=== PATIENT | female | born 1970 | race Two or more races ===

== ENCOUNTER 2019-02-09 18:52 | Emergency (ER) | payer OTHER, MEDICAID ==
[~2019-02-09] VITALS: Ht 154.9 cm; Wt 67.1 kg
[2019-02-09 19:30] VITALS: BP 130/71
--- NOTE | 2019-02-09 19:30 | NUR ---
PT C/C ABD PAIN RADIATING TO LOW BACK X 3 DAYS. -N/V/D. PT IN BED 6 AWAITING EVAL. AOX4. NAD NOTED. RESP EVEN AND UNLABORED. FAMILY AT BEDSIDE. WILL CONTINUE TO MONITOR.
--- NOTE | 2019-02-09 19:31 | NUR ---
URINE COLLECTED & SENT TO LAB.
[2019-02-09 19:53] LABS: APPEARANCE,URINE Clear (CLEAR); BILIRUBIN,URINE Negative (NEGATIVE); BLOOD, URINE Trace-intact Ery/uL (NEGATIVE); COLOR,URINE Yellow (YELLOW); KETONES,URINE Negative (NEGATIVE); LEUKOCYTE ESTERASE ,URINE Negative (NEGATIVE); NITRITE, URINE Negative (NEGATIVE); PH,URINE 6.5 (5.0-8.0); PROTEIN,URINE Negative (NEGATIVE); UGLUCOSE Negative (NEGATIVE); UROBILINOGEN,URINE 0.2 EU/dL (0.2)
[2019-02-09 19:56] LABS: BASOPHILS # (AUTO) 0.1 /CMM (0.0-0.2); BASOPHILS % (AUTO) 0.8 % (0.0-2.0); EOSINOPHILS % (AUTO) 1.1 % (0.0-6.0); HEMATOCRIT 39 % (33-45); LYMPHOCYTES # (AUTO) 2.1 /CMM (0.8-4.8); LYMPHOCYTES % (AUTO) 32.2 % (20.0-44.0); MEAN CORPUSCULAR HGB CONC 34 g/dl (31.0-36.0); MEAN CORPUSCULAR VOLUME 85 fL (82-100); MONOCYTES # (AUTO) 0.7 /CMM (0.1-1.30); MONOCYTES % (AUTO) 11.1 % (2.0-12.0); NEUTROPHILS # (AUTO) 3.6 /CMM (1.8-8.9); NEUTROPHILS % (AUTO) 54.8 % (43.0-81.0); PLATELET COUNT (AUTO) 285 /CMM (150-450); RED BLOOD CELL COUNT(AUTO) 4.56 MIL/uL (4.0-5.2); WHITE BLOOD COUNT (AUTO) 6.7 K/uL (4.3-11.0)
--- NOTE | 2019-02-09 20:00 | NUR ---
PHLEB AT BEDSIDE FOR LAB DRAW
[2019-02-09 20:03] LABS: CALCIUM, SERUM 8.8 mg/dL (8.5-10.1); CREATININE 0.9 mg/dL (0.6-1.3)
[2019-02-09 20:09] LABS: ALBUMIN 3.3 g/dL (3.4-5.0); BILIRUBIN,TOTAL 0.1 mg/dL (0.2-1.0); TOTAL PROTEIN, SERUM 7.3 g/dL (6.4-8.2)
[2019-02-09 20:17] LABS: BACTERIA,URINE None seen /HPF (None Seen); SQUAMOUS EPITHELIAL CELL,UR Few /HPF (None Seen); WBC,URINE 0-2 /HPF (0-3)
[2019-02-09] MEDS ORDERED: ACETAMINOPHEN ES 500 MG TABLET ONE (20:18)
[2019-02-09] MEDS ORDERED: ACETAMINOPHEN ES 500 MG TABLET PO ONE (20:30)
--- NOTE | 2019-02-09 21:30 | NUR ---
PT RETURNED FROM CT. PT TOLERATED WELL.
--- NOTE | 2019-02-09 22:24 | NUR ---
Patient discharged to home in stable condition. Written and verbal after care instructions given. Patient verbalizes understanding of instruction.
== END 2019-02-09 22:25 | disposition home or self-care (01) ==
LOC: ER 18:52
DX: G89.29 Other chronic pain (principal); R10.30 Lower abdominal pain, unspecified; M54.5 Low back pain
CPT/HCPCS: 36415; 80053-TC; 81000-TC; 83690-TC; 85025-TC

== ENCOUNTER 2022-09-22 20:23 | Emergency (ER) | payer MEDICAID, OTHER ==
[~2022-09-22] VITALS: Ht 157.5 cm; Wt 67.6 kg
--- NOTE | 2022-09-22 20:55 | NUR ---
PATIENT BIBSELF C/O BURNING/FREQUENT URINATION FOR THE PAST WEEK. PATIENT IS A/O X 4 RR EVEN AND UNLABORED NO SOB NOTED. VSS, NO ACUTE DISTRESS NOTED.
[2022-09-22] MEDS ORDERED: KETOROLAC TROMETHAMINE INJ 60 MG/2 ML VIAL IM ONE (21:00)
[2022-09-22] MEDS ORDERED: KETOROLAC TROMETHAMINE INJ 30 MG/ML VIAL ONE (21:02)
[2022-09-22 21:05] VITALS: BP 132/78
[2022-09-22 22:04] LABS: BILIRUBIN,URINE NEGATIVE (NEGATIVE); COLOR,URINE YELLOW (YELLOW); LEUKOCYTE ESTERASE ,URINE TRACE (NEGATIVE); NITRITE, URINE NEGATIVE (NEGATIVE); PROTEIN,URINE NEGATIVE (NEGATIVE); UGLUCOSE NEGATIVE (NEGATIVE); UROBILINOGEN,URINE 0.2 EU/dL (0.2)
[2022-09-22 22:11] LABS: BACTERIA,URINE Few /HPF (None Seen); SQUAMOUS EPITHELIAL CELL,UR Few /HPF (None Seen)
[2022-09-22] MEDS ORDERED: CEPH250C PO (22:19)
[2022-09-22] MEDS ORDERED: IBUP-1953 PO (22:19)
== END 2022-09-22 22:37 | disposition home or self-care (01) ==
LOC: ER 20:25
DX: N39.0 Urinary tract infection, site not specified (principal)
CPT/HCPCS: 99283; 96372; 81001; J1885

== ENCOUNTER 2022-10-10 14:38 | Emergency (ER) | payer OTHER ==
[~2022-10-10] VITALS: Ht 152.4 cm; Wt 68.0 kg
[~2022-10-10 14:38] MED LIST: CEPH250C PO; IBUP-1953 PO
[2022-10-10] MEDS ORDERED: KETOROLAC TROMETHAMINE INJ 30 MG/ML VIAL IM ONE (15:30)
[2022-10-10] MEDS ORDERED: KETOROLAC TROMETHAMINE 15 MG/ML VIAL ONE (16:02)
--- NOTE | 2022-10-10 17:09 | NUR ---
URINE SAMPLE COLLECTED AND SENT TO LAB
[2022-10-10] MEDS ORDERED: ESTR42.5 VG (17:46)
[2022-10-10 18:02] LABS: BILIRUBIN,URINE NEGATIVE (NEGATIVE); COLOR,URINE YELLOW (YELLOW); LEUKOCYTE ESTERASE ,URINE 3+ (NEGATIVE); NITRITE, URINE POSITIVE (NEGATIVE); PROTEIN,URINE 2+ mg/dl (NEGATIVE); UGLUCOSE NEGATIVE (NEGATIVE)
[2022-10-10 18:23] LABS: BACTERIA,URINE 3+ /HPF (None Seen); WBC,URINE 51-80 /HPF (0-3)
[2022-10-10] MEDS ORDERED: NITR100C6 PO (18:43)
--- NOTE | 2022-10-10 19:06 | NUR ---
Patient discharged to home in stable condition. Written and verbal after care instructions given. Patient verbalizes understanding of instruction.
[2022-10-10 19:08] VITALS: BP 126/70
== END 2022-10-10 19:08 | disposition home or self-care (01) ==
LOC: ER 14:40
DX: R30.0 Dysuria (principal); R10.2 Pelvic and perineal pain; F17.200 Nicotine dependence, unspecified, uncomplicated; Z79.899 Other long term (current) drug therapy
CPT/HCPCS: 99283; 96372; 87086; 81001; J1885